=== PATIENT | male | born 1995 | race Caucasian/White ===

== ENCOUNTER 2025-03-05 15:50 | Emergency (ER) | payer OTHER, SELFPAY ==
[2025-03-05 16:01] VITALS: BP 119/73
--- NOTE | 2025-03-05 16:55 | ED.GENMED ---
History of Present Illness
<Rahel Smith PA-C - Last Filed: 03/05/25 18:59>
General
Chief Complaint: Anal/Rectal Problem
Source: patient and family
Exam Limitations: none
Time Seen by Provider: 03/05/25 16:37
History of Present Illness
History of Present Illness:
29yoM with no significant past medical history presenting with his and sister for evaluation of a buttock abscess. Symptoms began 2 days ago with pain and swelling near the gluteal cleft. His was able to express some purulent discharge
yesterday. He started to experience subjective fevers last night. No history of similar symptoms in the past. He is otherwise asymptomatic and denies any abdominal pain, vomiting, constipation, diarrhea.
Phy Exam
<Rahel Smith PA-C - Last Filed: 03/05/25 18:59>
General Physical Exam
General Presentation: well appearing and no apparent distress
General Skin: warm and dry
General Habitus: normal
General Mental: alert
ENT Exam
ENT Exam: normocephalic
Neurological Exam
Neurological Exam: alert
[place] Coma Scale
Eye Opening: Spontaneous
Verbal Response: Oriented
Motor Response: Obeys Commands
GCS Total Score: 15
Skin Exam
Skin Exam: warm/dry and other (+Palpable area of induration to the L gluteal cleft with tenderness and erythema. No fluctuance or crepitus. No perirectal tenderness or swelling. )
Psychiatric Exam
Psychiatric Exam: normal mood/affect
Course
<Rahel Smith PA-C - Last Filed: 03/05/25 18:59>
Orders/Labs/Results
Orders:
Orders
03/05/25 17:35
Amoxicillin 875 mg/Clav 125 mg [Augmentin 875 mg/125 mg] 1 tablet PO NOW STA
Oxycodone/Acetaminophen [Percocet 5/325] 1 tablet PO NOW STA
Vital Signs
Initial and Last Documented VS:
Initial Vital Signs
Temp Pulse Resp BP Pulse Ox
99.8 F 97 20 119/73 98
03/05/25 16:01 03/05/25 16:01 03/05/25 16:01 03/05/25 16:01 03/05/25 16:01
Last Documented Vital Signs
Temp Pulse Resp BP Pulse Ox
99.8 F 97 20 119/73 98
03/05/25 16:01 03/05/25 16:01 03/05/25 16:01 03/05/25 16:01 03/05/25 16:57
<Cuco Salomon DO - Last Filed: 03/05/25 17:23>
Orders/Labs/Results
Orders:
Orders
03/05/25 17:35
Amoxicillin 875 mg/Clav 125 mg [Augmentin 875 mg/125 mg] 1 tablet PO NOW STA
Oxycodone/Acetaminophen [Percocet 5/325] 1 tablet PO NOW STA
Vital Signs
Initial and Last Documented VS:
Initial Vital Signs
Temp Pulse Resp BP Pulse Ox
99.8 F 97 20 119/73 98
03/05/25 16:01 03/05/25 16:01 03/05/25 16:01 03/05/25 16:01 03/05/25 16:01
Last Documented Vital Signs
Temp Pulse Resp BP Pulse Ox
99.8 F 97 20 119/73 98
03/05/25 16:01 03/05/25 16:01 03/05/25 16:01 03/05/25 16:01 03/05/25 16:57
Procedures
<Rahel Smith PA-C - Last Filed: 03/05/25 18:59>
Incision/Drainage/Joint Aspiration
Left Buttock:
Preparation: cleaned with Betadine
Type of procedure: incise and drain
Nature of site: abscess
Description of abscess: greater than 3cm
Loculations broken up: Yes
How much fluid was obtained?: scant amount
Fluid description: bloody
Treatment: packed with gauze and antibiotics started
<Rahel Smith PA-C - Last Filed: 03/05/25 18:59>
MDM/Problems Addressed
Differential Diagnosis Includes:
29yoM here with buttock pain and swelling x 2 days. Temp 99.8 here with otherwise normal vitals. There is palpable induration to the L gluteal cleft on exam with tenderness consistent with a pilonidal abscess/cyst. No clinical evidence of perirectal
abscess.
I&D attempted at bedside with minimal output. Packing placed and he was started on a course of Augmentin. Advised f/u with PCP and general surgery and ED return precautions reviewed. Patient and family members in agreement with plan and he was
discharged in stable condition.
<Rahel Smith PA-C - Last Filed: 03/05/25 18:59>
*Pulse Oximetry
SaO2: 98
Oxygen Mode of Delivery: Room air
Patient hypoxic: no
*Critical Care Note
Total Time (30-74mins, 75-104mins- exclusive of procedures): Not Applicable
ED Attending Note
<Rahel Smith PA-C - Last Filed: 03/05/25 18:59>
-
Portions of this chart may have been created with voice recognition software.� Occasional wrong word or��sound alike� substitutions may have occurred due to the inherent limitations of voice recognition software.
<Cuco Salomon DO - Last Filed: 03/05/25 17:23>
ED Attending Note
Patient seen and examined by attending physician: Yes
I performed the substantive portion of visit, reviewed & personally made and approve the management plan that is documented in note by myself or SULMA.: Yes
ED Attending Note:
Seen with PA examined independently. Clinically he has a pilonidal cyst as opposed to perirectal or rectal cyst or abscess
Discharge Plan
Departure
Patient Disposition: Home (Routine Discharge)
Date of Disposition: 03/05/25
Time of Disposition: 17:40
Patient with high blood pressure during this ER visit?: No
Discharge Problem:
Pilonidal cyst with abscess
Instructions: How to Do a Sitz Bath, Pilonidal cyst (DC)
Prescriptions:
New
amoxicillin-pot clavulanate 875-125 mg tablet
1 tab PO BID Qty: 13 0RF
Referrals:
Elbert Singletary MD [Active, Surgical]
Activity Restrictions/Additional Instructions:
Take antibiotics as prescribed. Remove packing in 48 hours. Do sitz baths for pain.
Please follow-up with your family doctor and general surgery. Return to the ER with any new or worsening symptoms including fevers or spreading redness.
Interventions
Interventions:
*Risk Screen - Suicide Last Done: 03/05/25 16:01
*General Assessment Last Done: 03/05/25 16:01
*Neglect/Abuse Screening Last Done: 03/05/25 16:01
*ED- Fall Risk Assessment Last Done: 03/05/25 18:15
*ED COVID-19 Vaccine History Last Done: 03/05/25 18:15
*ED Influenza Vaccine History Last Done: 03/05/25 18:15
*Nursing Disposition Last Done: 03/05/25 18:15
WM-Sgpomw-Ubnpxjpivj Assessment Last Done: 03/05/25 18:15
ED-Skin Assessment Last Done: 03/05/25 18:15
Discharge Date and Time
Discharge Date/Time: 03/05/25 18:15
Print Language: LATVIAN
[2025-03-05] MEDS: AUGMENTIN 875 MG/125 MG 1 TABLET PO (17:45)
[2025-03-05] MEDS: PERCOCET 5/325 1 TABLET PO (17:45)
== END 2025-03-05 18:15 | disposition home or self-care (01) ==
LOC: EMR 15:50
PROVIDERS: EMERGENCY PHYSICIAN Emergency Medicine
DX: L05.01 Pilonidal cyst with abscess (principal)
CPT/HCPCS: 99283; 10080